=== PATIENT | female | born 1965 | race Caucasian/White ===

== ENCOUNTER 2016-10-06 09:40 | Emergency (ER) | payer OTHER ==
[~2016-10-06] VITALS: Ht 172.7 cm; Wt 103.5 kg
[~2016-10-06 09:40] MED LIST: ABIL5TAB6 PO; GLUCTAB PO; HYDR-3533 PO; IBUP-238 PO; LEVEMIR SQ; LEVO50IN PO; LISI-363 PO; LORA-392 PO; NOVOLOGP2 SQ; PARO20TA PO; TRAZ100T50 PO
[2016-10-06 09:45] VITALS: BP 162/93; PULSE 67; RESP 19; TEMP 97.8; O2SAT 100
[2016-10-06] MEDS ORDERED: BUSP5TAB PO (10:10)
[2016-10-06] MEDS ORDERED: HYDR-3533 PO (10:10)
[2016-10-06] MEDS ORDERED: LORA-373 PO (10:10)
[2016-10-06] MEDS ORDERED: LISI-515 PO (10:10)
[2016-10-06] MEDS ORDERED: METF500T PO (10:10)
[2016-10-06] MEDS ORDERED: LEVO.2 PO (10:10)
--- NOTE | 2016-10-06 10:12 | PD ---
HPI Chief Complaint: Injury Time Seen by Provider: 10:09 Travel History International Travel<30 days: No Contact w/Intl Traveler<30days: No Traveled to known affect area: No History of Present Illness HPI Patient presents with complaints of left shoulder pain. States that she was walking into the kitchen when she tripped over the washing machine door and fell to her left shoulder hitting the wall and floor. Reports inability to lift her arm. Reports a history of left rotator cuff repair. Denies any head trauma or loss of consciousness. PFSH Past Medical History Anxiety: Yes Depression: Yes Cancer: No Cardiovascular Problems: No High Cholesterol: Yes Diabetes: Yes Patient Takes Glucophage: Yes Diminished Hearing: No Endocrine: Yes Gastrointestinal Disorders: No GERD: Yes Glaucoma: No Genitourinary: No Hepatitis: No Hiatal Hernia: No Hypertension: Yes (diet control) Immune Disorder: No Medical other: No Musculoskeletal: Yes (HX NECK AND BACK PROBLEMS) Neurologic: No Psychiatric: Yes (ANXIETY DEPRESSION) Respiratory: No Seizures: Yes Thyroid Disease: Yes Tetanus Vaccination: > 5 Years Influenza Vaccination: No ?: Not Menopausal: Yes Ovarian Cysts: Yes Past Surgical History Abdominal Surgery: No Body Medical Devices: LEFT ARM HAS 2 CLIPS Cardiac Surgery: No Ear Surgery: No Endocrine Surgery: Yes (states thyroid removed) Eye Surgery: No Genitourinary Surgery: No Gynecologic Surgery: Yes (OVARIAN CYSTS,HYSTERECTOMY) Hysterectomy: Yes Oral Surgery: Yes (T/A) Pacemaker: No Thoracic Surgery: No Tonsillectomy: Yes Other Surgery: Yes (gastric bypass 2015) Social History Alcohol Use: Yes (OCC) Tobacco Use: No Substance Use: No Allergies-Medications (Allergen,Severity, Reaction): Coded Allergies: Morphine (Verified Allergy, Severe, HYPOTENSION, RASH, 10/06/16) [place] (Unverified Allergy, Mild, UPSET STOMACH, 10/06/16) Demerol (Unverified Allergy, Unknown, RAISES BLOOD PRESSURE, 10/06/16) Dilantin (Verified Allergy, Unknown, 10/06/16) SEIZURES AGE 5 Aspirin (Verified Adverse Reaction, Mild, UPSET STOMACH, 10/06/16) Reported Meds & Prescriptions Reported Meds & Active Scripts Active Hydrocodone-Acetaminophen 5-325 mg Tab 1 Tab PO Q4H PRN Reported Buspirone (Buspirone HCl) 5 Mg Tab 5 Mg PO HS Lorazepam 0.5 Mg Tab 0.5 Mg PO Q8H PRN Synthroid (Levothyroxine Sodium) 200 Mcg Tab 225 Mcg PO DAILY Lortab (Hydrocodone-Acetaminophen) 5-325 Mg Tab 1 Tab PO Q8HR PRN Metformin (Metformin HCl) 500 Mg Tab 500 Mg PO BIDPC With meals Lisinopril 20 Mg Tab 20 Mg PO DAILY Review of Systems General / Constitutional: No: Fever Eyes: No: Visual changes HENT: No: Headaches Cardiovascular: No: Chest Pain or Discomfort Respiratory: No: Shortness of Breath Gastrointestinal: No: Abdominal Pain Genitourinary: No: Dysuria Musculoskeletal: No: Pain Skin: No Rash Neurologic: No: Weakness Psychiatric: No: Depression Endocrine: No: Polydipsia Hematologic/Lymphatic: No: Easy Bruising Physical Exam Narrative GENERAL: Well-nourished, well-developed patient. SKIN: Focused skin assessment warm/dry. HEAD: Normocephalic. EYES: No scleral icterus. No injection or drainage. NECK: Supple, trachea midline. No JVD or lymphadenopathy. CARDIOVASCULAR: Regular rate and rhythm without murmurs, gallops, or rubs. RESPIRATORY: Breath sounds equal bilaterally. No accessory muscle use. GASTROINTESTINAL: Abdomen soft, non-tender, nondistended. MUSCULOSKELETAL: No cyanosis, or edema. BACK: Nontender without obvious deformity. No CVA tenderness. Examination the left shoulder reveals tenderness over the clavicle and posterior shoulder, able to move her fingers well no pain with flexion extension of the wrist good radial pulse discomfort in the left shoulder with flexion extension of the elbow, unable to abduct her arm. No gross bony deformities ecchymosis erythema or edema Data Data Last Documented VS Vital Signs Date Time Temp Pulse Resp B/P Pulse Ox O2 Delivery O2 Flow Rate FiO2 10/06/16 10:00 16 99 Room Air 10/06/16 09:45 97.8 67 162/93 Orders Shoulder, Complete (>2vws) (10/06/16 ) Acetamin-Hydrocod 325-5 Mg ([place]arrison 5-325 (10/06/16 12:45) Splint Or Brace Apply/Monitor (10/06/16 12:39) MDM Medical Decision Making Medical Screen Exam Complete: Yes Emergency Medical Condition: Yes Differential Diagnosis Clavicle fracture, humerus fracture, rotator cuff injury, shoulder sprain, shoulder contusion Narrative Course Assessment and plan discussed with patient and at bedside. Patient declines pain medication initially. Last 72 hours Impressions Shoulder X-Ray 10/06/16 0000 Signed Impressions: Service Date/Time: Thursday, October 06, 2016 10:51 - CONCLUSION: Proximal humerus fracture. Espinoza Leon MD Physician Communication Physician Communication Call placed to Dr Perez Diagnosis Primary Impression: Fracture of proximal end of left humerus Qualified Code: S42.292A - Other closed displaced fracture of proximal end of left humerus, initial encounter Patient Instructions: General Instructions Additional Instructions: Return to ER with any change of symptoms, follow-up with PCP/orthopedics [facility]. Pain medication as prescribed Med/Other Pt SpecificInfo: Prescription(s) given Scripts Hydrocodone-Acetaminophen 5-325 mg Tab1 Tab PO Q4H PRN (PAIN) #20 TAB Ref 0 Prov:Gustavo Santa MD 10/06/16 Disposition: 01 DISCHARGE HOME Condition: Good Gustavo Santa MD October 06, 2016 10:12
--- NOTE | 2016-10-06 12:00 | RADHPO ---
EXAM DATE/TIME: 10/06/2016 10:51 [place] COMPARISON: No previous studies available for comparison. INDICATIONS : Left shoulder pain status post fall this morning. MEDICAL HISTORY : SURGICAL HISTORY : Hysterectomy. Rotator cuff repair, left. Severed nerve repair, left shoulder. Carpal tunnel ulnar nerve surgery, left. ENCOUNTER: Initial ACUITY: 1 day PAIN SCORE: 10/10 LOCATION: Left shoulder. FINDINGS: 4 views of the left shoulder. Fracture of the proximal humerus with involvement of the surgical neck and possible involvement of the greater tuberosity. 5 mm displacement. Glenohumeral joint alignment w ithin normal limits. Moderate hypertrophic change of the acromioclavicular joint. CONCLUSION: Proximal humerus fracture. Espinoza Leon MD on October 06, 2016 at 11:57 Board Certified Radiologist. This report was verified electronically.
[2016-10-06] MEDS ORDERED: HYDR-3516 PO ×2 (12:42→12:49)
[2016-10-06] MEDS ORDERED: ACETAMINOPHEN/HYDROcodone 325 MG/5 MG TAB PO ONE (12:45)
== END 2016-10-06 13:20 | disposition home or self-care (01) ==
LOC: PHEFT 09:40
DX: S42.212A Unspecified displaced fracture of surgical neck of left humerus, initial encounter for closed fracture (principal); F41.8 Other specified anxiety disorders; E78.00 Pure hypercholesterolemia, unspecified; E11.9 Type 2 diabetes mellitus without complications; K21.9 Gastro-esophageal reflux disease without esophagitis; I10 Essential (primary) hypertension; W18.41XA Slipping, tripping and stumbling without falling due to stepping on object, initial encounter; Y93.89 Activity, other specified; Y92.010 Kitchen of single-family (private) house as the place of occurrence of the external cause; Y99.8 Other external cause status
CPT/HCPCS: 29240; 73030